=== PATIENT | male | born 1965 | race Caucasian/White ===

== ENCOUNTER 2016-11-28 20:11 | Inpatient (IN) | payer BC ==
[~2016-11-28] VITALS: Ht 188 cm; Wt 95.7 kg
[2016-11-28 20:22] VITALS: BP 119/84; PULSE 77; RESP 18; TEMP 97.8; O2SAT 98
--- NOTE | 2016-11-28 20:40 | NUR ---
Patient to ER bed 01 to gown for evaluation. Side rails up. Report given to Bay
--- NOTE | 2016-11-28 20:50 | NUR ---
Pt presents to ED with c/o feeling "something stuck in the throat". pt stated since 2 pm, pt vomitted after trying to swallow food. Denies swalllowing any object. A&Ox4, denies SOb or chestpain. Skin intact. Will contineu to monitor
--- NOTE | 2016-11-28 21:22 | NUR ---
at bedside examining pt
[2016-11-28] MEDS ORDERED: METOCLOPRAMIDE HCL 10 MG/2 ML VIAL IVP ONE (21:30)
[2016-11-28] MEDS ORDERED: DIPHENHYDRAMINE INJ 50 MG/ML VIAL IVP ONE (21:30)
[2016-11-28] MEDS ORDERED: KETOROLAC TROMETHAMINE 30 MG VIAL IVP ONE (21:30)
[2016-11-28] MEDS ORDERED: LORazepam 2 MG/ML VIAL (FOR ER USE) IVP ONE (21:30)
[2016-11-28] MEDS ORDERED: GLUCAGON,HUMAN RECOMBINANT 1 MG VIAL IVP ONE (21:45)
[2016-11-28 21:51] LABS: EOSINOPHILS # (AUTO) 0.2 K/uL (0.0-0.4)
[2016-11-28 21:59] LABS: BASOPHILS # (AUTO) 0.2 K/uL (0.0-0.2); BASOPHILS % (AUTO) 1.5 % (0.0-2.0); EOSINOPHILS % (AUTO) 2.2 % (0.0-4.0); HEMOGLOBIN 15.8 g/dL (14.0-18.0); LYMPHOCYTES # (AUTO) 1.9 K/uL (1.0-5.5); LYMPHOCYTES % (AUTO) 18.9 % (20.5-51.5); MEAN CORPUSCULAR HEMOGLOBIN 33 pg (27-31); MEAN CORPUSCULAR HGB CONC 34 % (32-36); MEAN CORPUSCULAR VOLUME 95 fL (79.0-98.0); MONOCYTES # (AUTO) 0.7 K/uL (0.0-1.0); MONOCYTES % (AUTO) 6.9 % (1.7-9.3); NEUTROPHILS # (AUTO) 7.2 K/uL (1.8-7.7); NEUTROPHILS % (AUTO) 70.5 % (40.0-70.0); PLATELET COUNT (AUTO) 182 K/uL (130-430); RED BLOOD CELL COUNT(AUTO) 4.85 MIL/uL (4.2-6.2); RED CELL DISTRIBUTION WIDTH 12.1 % (9.0-15.0); WHITE BLOOD COUNT (AUTO) 10.2 K/uL (4.8-10.8)
--- NOTE | 2016-11-28 22:00 | NUR ---
Unable to carry out XR of esophageal order d/t inavaiability of speech pathologist, MD Bethea aware
[2016-11-28 22:17] LABS: ALBUMIN 4.3 g/dL (3.4-4.8); CALCIUM 9.6 mg/dL (8.4-11.0); CREATININE 1.22 mg/dL (0.55-1.30); POTASSIUM 3.9 mmol/L (3.5-5.1); TOTAL BILIRUBIN 1.4 mg/dL (0.0-1.0); TOTAL PROTEIN, SERUM 7.9 g/dL (6.4-8.3)
--- NOTE | 2016-11-28 22:30 | NUR ---
Pt in bed, denies headache, will continue to monitor
--- NOTE | 2016-11-28 23:15 | NUR ---
Pt unable to tolerate PO liquid. Pt vomitted
[2016-11-29] VITALS (7 sets, daily range): BP systolic 99–126; BP diastolic 60–72; PULSE 68–87; RESP 16–18; TEMP 97.6–98.4; O2SAT 92–99
--- NOTE | 2016-11-29 00:23 | NUR ---
Medication reconciliation completed with information provided by pt. pt stated he does not take any medication at home
--- NOTE | 2016-11-29 00:52 | NUR ---
Patient will be admitted to care of . Admitted to M/S unit. Will go to room 107B. Belongings list completed. Summary report printed. Report given to Orlando RODRIGUEZ.
--- NOTE | 2016-11-29 00:53 | NUR ---
CONSULTATION PAGED REASON FOR CONSULTATION:DYSPHAGIA WAS CONSULT CALLED?Y PERSON WHO WAS NOTIFIED:CRISTOFER CONSULTING PHYSICIAN:AUGUSTIN MEDINA CAKE [employer]ULLER SPECIALTY:GI [facility] PHONE NUMBER:[phone]
--- NOTE | 2016-11-29 01:00 | NUR ---
Admission Note Received patient from ER with diagnosis of dysphagia. Initial Plan of Care discussed-patient verbalized understanding. Family at bedside. Oriented to room, call light, pain management and safety.
--- NOTE | 2016-11-29 01:02 | NUR ---
RN Note Admission assessment done. Pt was instructed on nothing by mouth and pt verbalized understanding. Call light is with pt. is at the bedside.
[2016-11-29] MEDS: D5/0.45 NS 1,000 ML IV SCH ×2 (01:15→16:34)
--- NOTE | 2016-11-29 01:46 | NUR ---
Rounds Pt is sleeping comfortably in bed. IVF is infusing well and call light is with pt.
--- NOTE | 2016-11-29 03:30 | NUR ---
Rounds Pt is sleeping comfortably in bed. Call light is with pt.
--- NOTE | 2016-11-29 05:00 | NUR ---
Rounds Pt is resting quietly in bed. Call light is with pt.
--- NOTE | 2016-11-29 06:40 | NUR ---
Closing Note Pt is awake and resting comfortably in bed. All pt's needs were attended to. No fall or injury noted this shift. IVF is infusing well in LAC. Will endorse to day shift nurse.
[2016-11-29] MEDS ORDERED: MORPHINE 4 MG/ML INJ. SYRINGE IVP PRN (06:45)
[2016-11-29] MEDS ORDERED: ACETAMINOPHEN 325 MG TABLET PO PRN (06:45)
[2016-11-29] MEDS ORDERED: MORPHINE 2 MG/ML INJ. SYRINGE IVP PRN (06:45)
--- NOTE | 2016-11-29 06:48 | NUR ---
CALLED GI CONSULT TO DR SHUKLA, RE: DYSPHAGIA. SPOKE TO BING
--- NOTE | 2016-11-29 08:00 | NUR ---
OPENING NOTE PATIENT IS AWAKE, ALERT. DENIES ANY PAIN AT THIS TIME. PATIENT IS ASKING WHEN HE WILL SEE GI ADVISED PT THAT MD HAS A LOT OF CASES TODAY BUT SHOULD STOP BY BETWEEN THEM TO SEE HIM. LUNGS ARE CLEAR, VITALS STABLE. CALL LIGHT WITHIN REACH, NO SIGNS OF DISTRESS.
--- NOTE | 2016-11-29 09:45 | NUR ---
PATIENT TAKEN TO GI LAB FOR EGD VIA WHEELCHAIR
--- NOTE | 2016-11-29 09:45 | NUR ---
dr cintron in to see patient. consent for EGD obtained
[2016-11-29] MEDS ORDERED: MIDAZOLAM HCL 5 MG/5 ML VIAL ONE (10:03)
[2016-11-29] MEDS ORDERED: MEPERIDINE HCL/PF 100 MG/ML AMP ONE (10:03)
[2016-11-29] MEDS ORDERED: MEPERIDINE HCL/PF 100 MG/ML AMP IV ONE ×3 (10:18→10:28)
[2016-11-29] MEDS ORDERED: MIDAZOLAM HCL 5 MG/5 ML VIAL IVP ONE ×3 (10:20→10:24)
--- NOTE | 2016-11-29 11:05 | NUR ---
PATIENT RETURNED FROM GI LAB
--- NOTE | 2016-11-29 12:00 | NUR ---
patient given clear liquid tray. tolerated well. no swallowing issues.
--- NOTE | 2016-11-29 15:29 | NUR ---
patient is sleeping.
--- NOTE | 2016-11-29 16:50 | NUR ---
patient given pitcher of watr and tylenol for stated headache. patient is reporting anxiety, states he does not normally have anxiety.
[2016-11-29] MEDS ORDERED: PANTOPRAZOLE SODIUM 40 MG/VIAL (PROTONIX) IVP ONE (18:15)
--- NOTE | 2016-11-29 19:11 | NUR ---
CLOSING NOTES PATIENT IS STABLE, C/O MILD PAIN IN ESOPHAGUS. NO ACUTE DISTRESS. TOLERATING DIET WELL. REPORT GIVEN TO ONCOMING SHIFT
--- NOTE | 2016-11-29 19:15 | NUR ---
change of shift.initial pt.assessment.pt.presents stable status.iv fluids infusing.pt.stable @room air.pt is s/p egd/:11/29/16,w/esophageal stricture and dilatation.pi inquired if the pt.presents symptoms of pian. pt.stated that his throat is sore.i inquired if the pt.requested medication;pain,he stated he is fine.dietary status: full liquids and possible advance 2 mech-soft in am:11/30/16. Addendum: 11/30/16 at 0430 by Dallin Miguel RN pt.had requested medication 4 sleep.2 f/u placing dev 2 . Addendum: 11/30/16 at 0434 by Dallin Miguel RN @bedside.
--- NOTE | 2016-11-29 19:39 | NUR ---
paged for Dr Ireland, dialed . s/w Remedios. Dr Magana is on-call for Dr Ireland.
--- NOTE | 2016-11-29 20:00 | NUR ---
pt.assessed.v/s assessed.i inquired if pt.experiencing pain,nausea.pt.stated slight discomfort 2 the throat. i inquired if the pt.requested pain medication pt.stated no he is fine.v/s assessed.values w/in normal limits. call light w/in pt's reach. Addendum: 11/30/16 at 0443 by Dallin Miguel RN i have reiterated 2 the pt.that snacks r available.pt.requested pudding.i have provided the pudding snack.no other request.
--- NOTE | 2016-11-29 20:32 | NUR ---
second page for Dr Magana, dialed . s/w Gabriela.
--- NOTE | 2016-11-29 20:45 | NUR ---
;correspondence section supervisor 4 ; returned the telephone call.i apprised of pt's request:medication;sleep. geovany lynn ordered restoril:15mg po x1.
--- NOTE | 2016-11-29 21:00 | NUR ---
2100p medications administered.protonix:ivp:i have provided the explanation/objective of the medication and the administration of the [id number] po x1.no request@this hour.call light w/in pt's reach.
[2016-11-29] MEDS ORDERED: TEMAZEPAM 15 MG CAPSULE PO ONE (21:15)
[2016-11-29] MEDS: PANTOPRAZOLE SODIUM 40 MG/VIAL (PROTONIX) IVP SCH (21:25)
--- NOTE | 2016-11-29 22:00 | NUR ---
pt.assessed.pt.presents quiescent affect;calm,asleep.no distress/discomfort manifested.iv fluids infusing,call light w/in pt's reach.
--- NOTE | 2016-11-30 | NUR ---
pt.assessed.pt.presents quiescent affect;calm,asleep.no distress/discomfort manifested.iv fluids infusing. call light w/in pt's reach.
--- NOTE | 2016-11-30 02:00 | NUR ---
pt.assessed.pt.presents quiescent affect;calm,asleep.no distress/discomfort manifested. call light w/in pt's reach.
[2016-11-30] MEDS: D5/0.45 NS 1,000 ML IV SCH ×2 (03:17→05:40)
--- NOTE | 2016-11-30 04:00 | NUR ---
pt.assessed.pt.presents quiescent affect;calm,asleep.no distress/discomfort manifested.call light w/in pt's reach.
[2016-11-30 04:18] VITALS: BP 96/46; PULSE 64; RESP 16; TEMP 97.4; O2SAT 98
--- NOTE | 2016-11-30 06:44 | NUR ---
pt.assessed.no c/o pain,nausea.changed the iv fluids bag.no distress/discomfort manifested.call light w/i n pt's reach.
--- NOTE | 2016-11-30 07:44 | NUR ---
INITIAL NOTES RECEIVED PATIENT ON BED AWAKE.BREATHING EVEN AND UNLABORED.NO ACUTE DISTRESS.IVF INFUSING WELL;NO SIGNS AND SYMPTOMS OF INFILTRATION.SAFETY AND FALL PRECAUTIONS IN PLACE.CALL LIGHT WITHIN REACH
[2016-11-30 07:45] VITALS: BP 95/51; PULSE 65; RESP 17; TEMP 97.8; O2SAT 97
[2016-11-30] MEDS: PANTOPRAZOLE SODIUM 40 MG/VIAL (PROTONIX) IVP SCH (09:35)
--- NOTE | 2016-11-30 10:45 | NUR ---
NOTES PATIENT ON BED AWAKE.NO ACUTE DISTRESS
[2016-11-30 12:00] VITALS: BP 125/83; PULSE 85; RESP 21; TEMP 98.4; O2SAT 98
[2016-11-30 12:33] VITALS: BP 101/55; PULSE 68; RESP 18; TEMP 97.4; O2SAT 96
--- NOTE | 2016-11-30 12:40 | NUR ---
NOTES SERVED REGULAR FOOD AT LUNCH;TOLERATED FOOD WELL
--- NOTE | 2016-11-30 13:40 | NUR ---
D/C Patient Patient given medication reconciliation form and D/C instructions. Exit Care provided. Patient verbalized understanding. MD discussed with patient the results and treatment provided. Ambulatory with steady gait for discharge to home. Patient in stable condition, ID band removed. IV catheter removed, intact and dressing applied, no active bleeding. Rx of protonix given. Patient educated on pain management. All belongings sent with patient.
== END 2016-11-30 14:40 | disposition home or self-care (01) | DRG 393 ==
LOC: SED 20:11 → SMU 11-29 00:37
PROVIDERS: ADMIT Internal Medicine Hospice and Palliative Medicine; ATTEND Internal Medicine Hospice and Palliative Medicine
PROC: 0D758ZZ Dilation of Esophagus, Via Natural or Artificial Opening Endoscopic (ICD-10-PCS; 2016-11-29)
PROC: 0DB58ZX Excision of Esophagus, Via Natural or Artificial Opening Endoscopic, Diagnostic (ICD-10-PCS; 2016-11-29)
PROC: 0DC38ZZ Extirpation of Matter from Lower Esophagus, Via Natural or Artificial Opening Endoscopic (ICD-10-PCS; principal; 2016-11-29 10:16)
DX: T18.128A Food in esophagus causing other injury, initial encounter (principal); S27.813A Laceration of esophagus (thoracic part), initial encounter; K22.2 Esophageal obstruction; Y93.89 Activity, other specified; X58.XXXA Exposure to other specified factors, initial encounter; Y92.89 Other specified places as the place of occurrence of the external cause; Y99.8 Other external cause status
CPT/HCPCS: 36415; 43239; 71010; 80053; 85025; 88305; 88313; 96374; 96375; 99285; C9113; J1200; J1610; J1885; J2060; J2175; J2250; J2765